=== PATIENT | female | born 1990 | race Caucasian/White ===

== ENCOUNTER 2023-01-10 00:15 | Inpatient (IN) | payer OTHER ==
[2023-01-10] MEDS ORDERED: Lidocaine 1% 50 ML MDV INJECT ONE (12:25)
[2023-01-10] MEDS ORDERED: Ondansetron 4 MG/2 ML SDV IVPUSH PRN (12:25)
[2023-01-10] MEDS ORDERED: Acetaminophen 325 MG Tab PO PRN (12:25)
[2023-01-10] MEDS ORDERED: Sodium Chloride 0.9% 10 ML Syringe FLUSH PRN (12:25)
[2023-01-10] MEDS ORDERED: Calcium Carbonate 500 MG Tab.Chew PO PRN (12:25)
[2023-01-10 12:55] LABS: BASOPHILS PERCENT AUTO 0.3 % (0.0-1.0); EOSINOPHILS PERCENT AUTO 0.3 % (0.0-6.0); HEMATOCRIT 41.2 % (37.0-47.0); HEMOGLOBIN 13.5 gm/dl (12.0-16.0); IMMATURE GRAN ABSOLUTE AUTO 0.05 K/mm3 (0.00-0.05); IMMATURE GRAN PERCENT AUTO 0.4 % (0.0-0.4); LYMPHOCYTES ABSOLUTE AUTO 1.9 K/mm3 (1.0-4.8); LYMPHOCYTES PERCENT AUTO 16.3 % (24.0-44.0); MEAN CORPUSCULAR HEMOGLOBIN 28.1 pg (28.0-32.0); MEAN CORPUSCULAR HGB CONC 32.8 g/dl (32.0-36.0); MEAN CORPUSCULAR VOLUME 85.7 fl (83.0-99.0); MEAN PLATELET VOLUME 10.5 fl (9.4-12.3); MONOCYTES ABSOLUTE AUTO 1.2 K/mm3 (0.0-0.8); MONOCYTES PERCENT AUTO 10.5 % (0.0-8.0); NEUTROPHILS ABSOLUTE AUTO 8.5 K/mm3 (1.8-7.7); NEUTROPHILS PERCENT AUTO 72.2 % (41.0-71.0); PLATELET COUNT,PLT 295 K/mm3 (150-400); RED BLOOD CELL COUNT 4.81 M/mm3 (4.10-5.30); WHITE BLOOD CELL COUNT,WBC 11.72 K/mm3 (3.9-11.3)
[2023-01-10 13:13] LABS: CREATININE 0.6 mg/dL (0.55-1.02); EST CRCL DRUG DOSING (CG) 133.32 mL/min; URIC ACID 4.3 mg/dL (2.6-6.0)
[2023-01-10] MEDS ORDERED: Oxytocin/Lactated Ringers 30 UNIT/500 ML BAG IV SCH (13:15)
[2023-01-10] MEDS ORDERED: Lidocaine 1% 50 ML MDV INJECT SCH (13:15)
[2023-01-10 13:48] LABS: CREATININE,URINE RAND 187.1 mg/dL (30.0-125.0); PROTEIN CREATININE RATIO,URINE 206.3 mg/g (0-149); PROTEIN,URINE RANDOM 38.6 mg/dL (0.0-11.8)
[2023-01-10] MEDS: Misoprostol 25 MCG (1/4 of 100 MCG) Tab VAG PRN ×3 (14:20→22:55)
[2023-01-10] MEDS ORDERED: hydrOXYzine HCl 50 MG Tab PO PRN (18:22)
[2023-01-10] MEDS: Nalbuphine HCl 10 MG/ 1ML Amp IVPUSH PRN (20:43)
[2023-01-11] MEDS: Nalbuphine HCl 10 MG/ 1ML Amp IVPUSH PRN (00:07)
[2023-01-11] MEDS: Lactated Ringers 1,000 ML IV SCH ×5 (02:40→18:35)
[2023-01-11] MEDS ORDERED: fentaNYL 100 MCG/2 ML SDV EPIDUR PRN (03:04)
[2023-01-11] MEDS ORDERED: diphenhydrAMINE 50 MG/ML SDV IVPUSH PRN (03:04)
[2023-01-11] MEDS: Bupivacaine/fentaNYL/NS 100 ML Bag EPIDUR PRN ×4 (03:15→20:39)
[2023-01-11] MEDS: ePHEDrine 50 MG/ML SDV IVPUSH PRN ×3 (03:52→04:08)
[2023-01-11] MEDS ORDERED: Acetaminophen 325 MG Tab PO ONE (20:03)
[2023-01-11] MEDS ORDERED: ceFAZolin 2 GM in Sodium Chloride 0.9% 50 ML IV SCH (20:30)
[2023-01-11] MEDS ORDERED: Tranexamic Acid 1,000 MG/10 ML Vial ONE (21:25)
[2023-01-12] MEDS ORDERED: Gentamicin 40 MG/ML 20 ML MDV IV SCH
[2023-01-12] MEDS ORDERED: Bupivacaine 0.25% 10 ML SDV ONE
[2023-01-12] MEDS ORDERED: Witch Hazel Medicated Pads 40/Jar TOP PRN (01:00)
[2023-01-12] MEDS ORDERED: Benzocaine/Menthol 20%-0.5% Spray 78 GM Cannister TOP PRN (01:00)
[2023-01-12] MEDS: Ibuprofen 600 MG Tab PO PRN ×4 (01:31→23:55)
[2023-01-12] MEDS: Acetaminophen 325 MG Tab PO PRN ×2 (07:17→17:25)
[2023-01-13] MEDS: Ibuprofen 600 MG Tab PO PRN (08:49)
[2023-01-13] MEDS: Acetaminophen 325 MG Tab PO PRN (08:50)
== END 2023-01-13 15:58 | disposition home or self-care (01) | DRG 807 ==
LOC: JD.OB 00:15 → OBSVTOIN 01-12 00:15 → JD.OB 01-12 00:16
PROVIDERS: ADMIT Obstetrics & Gynecology; ATTEND Obstetrics & Gynecology
PROC: 10E0XZZ Delivery of Products of Conception, External Approach (ICD-10-PCS; principal; 2023-01-12)
PROC: 0KQM0ZZ Repair Perineum Muscle, Open Approach (ICD-10-PCS; 2023-01-12)
PROC: 3E0R3BZ Introduction of Anesthetic Agent into Spinal Canal, Percutaneous Approach (ICD-10-PCS; 2023-01-12)
PROC: 00HU33Z Insertion of Infusion Device into Spinal Canal, Percutaneous Approach (ICD-10-PCS; 2023-01-12)
PROC: 3E0P7VZ Introduction of Hormone into Female Reproductive, Via Natural or Artificial Opening (ICD-10-PCS; 2023-01-12)
PROC: 10907ZC Drainage of Amniotic Fluid, Therapeutic from Products of Conception, Via Natural or Artificial Opening (ICD-10-PCS; 2023-01-12)
PROC: 10H07YZ Insertion of Other Device into Products of Conception, Via Natural or Artificial Opening (ICD-10-PCS; 2023-01-12)
DX: O13.4 Gestational [pregnancy-induced] hypertension without significant proteinuria, complicating childbirth (principal); Z37.0 Single live birth; O70.1 Second degree perineal laceration during delivery; Z3A.37 37 weeks gestation of pregnancy; Z88.0 Allergy status to penicillin; Z86.16 Personal history of COVID-19
CPT/HCPCS: 36415; 51701; 51702; 59025; 59409; 82565; 82570; 83615; 84156; 84450; 84460; 84520; 84550; 85025; 86592; 86850; 86900; 86901; A9270-GY; J0690; J1580; J2300; J3010; J3490; J7120; J7999